=== PATIENT | female | born 1945 | race African-American/Black ===

== ENCOUNTER 2019-09-13 13:39 | Emergency (ER) | payer MEDICARE ==
[~2019-09-13] VITALS: Ht 162.6 cm; Wt 84.0 kg
[2019-09-13] MEDS ORDERED: KETOROLAC 60MG/2ML VIAL IM ONE (14:45)
[2019-09-13 15:56] VITALS: BP 136/98
== END 2019-09-13 15:56 | disposition home or self-care (01) ==
LOC: ER 14:02
DX: M25.512 Pain in left shoulder (principal); Z98.890 Other specified postprocedural states
CPT/HCPCS: 73030; 96372; 99283; J1885

== ENCOUNTER 2019-10-13 19:11 | Emergency (ER) | payer MEDICARE ==
[~2019-10-13] VITALS: Ht 162.6 cm; Wt 84.0 kg
[2019-10-13] MEDS ORDERED: KETOROLAC 30MG/ML VIAL IM ONE (23:00)
[2019-10-14] MEDS ORDERED: ONDANSETRON HCL 4MG/2ML INJ IV PRN
[2019-10-14] MEDS ORDERED: IPRATROPIUM/ALBUTEROL 0.5-3(2.5)MG/3ML NEB HHN PRN
[2019-10-14] MEDS ORDERED: DIPHENHYDRAMINE 50MG/ML VIAL IV PRN
[2019-10-14] MEDS ORDERED: ACETAMINOPHEN 325MG TABLET PO PRN
[2019-10-14] MEDS ORDERED: MAGNESIUM/ALUMINUM HYDROXIDE/SIMETHICONE 30ML UDC PO PRN
[2019-10-14] MEDS ORDERED: GUAIFENESIN 200MG/10ML SUGAR FREE UDC PO PRN
[2019-10-14] MEDS ORDERED: TRAMADOL 50MG TABLET PO PRN
[2019-10-14] MEDS ORDERED: HYDROCODONE/ACETAMINOPHEN 5/325MG TABLET PO PRN
[2019-10-14] MEDS ORDERED: CYCLOBENZAPRINE 10MG TABLET PO PRN
[2019-10-14] MEDS ORDERED: MORPHINE SULFATE 2 MG/ML CPJ (NOT FOR IM USE) IV PRN
[2019-10-14] MEDS ORDERED: CLONIDINE 0.1MG TABLET PO PRN
[2019-10-14] MEDS ORDERED: DOCUSATE SODIUM 100MG CAPSULE PO PRN
[2019-10-14] MEDS ORDERED: LORAZEPAM 2MG/ML CPJ IV PRN
[2019-10-14 00:44] VITALS: BP 176/85
[2019-10-14] MEDS ORDERED: FAMOTIDINE 20MG TABLET PO SCH (21:00)
== END 2019-10-14 00:46 | disposition home or self-care (01) ==
LOC: ER 19:11
DX: M25.512 Pain in left shoulder (principal); I10 Essential (primary) hypertension; J45.909 Unspecified asthma, uncomplicated
CPT/HCPCS: 73030; 73060; 96372; 99284; J1885

== ENCOUNTER 2022-01-07 09:33 | Emergency (ER) | payer MEDICARE, OTHER ==
[~2022-01-07] VITALS: Ht 160 cm; Wt 73.0 kg
[2022-01-07 09:48] VITALS: BP 162/77
[2022-01-07] MEDS ORDERED: MECLIZINE 25MG TABLET PO ONE (11:45)
[2022-01-07 11:57] LABS: HEMATOCRIT. 43.7 % (36.0-48.0); HEMOGLOBIN. 14.8 g/dL (12.0-16.0); MEAN CORPUSCULAR HEMOGLOBIN 29.1 pg (28.0-32.0); MEAN CORPUSCULAR VOLUME 85.5 fL (81.0-99.0); MEAN PLATELET VOLUME 8.5 fl (7.4-10.4); PLATELET 220 x1000/uL (130-400); RED CELL DISTRIBUTION WIDTH 14.4 % (11.6-14.6)
[2022-01-07 12:02] LABS: CHLORIDE 108 mEq/L (98-107)
[2022-01-07 12:08] LABS: CLARITY URINE CLEAR (CLEAR); COLOR URINE YELLOW (YELLOW); KETONES URINE TRACE (NEGATIVE); LEUKOCYTE ESTERASE URINE NEGATIVE (NEGATIVE); NITRITE URINE NEGATIVE (NEGATIVE); OCCULT BLOOD URINE NEGATIVE (NEGATIVE); PROTEIN URINE NEGATIVE (NEGATIVE); UROBILINOGEN URINE 0.2 E.U./dL (0.2-1.0)
[2022-01-07 12:35] LABS: PLATELET ESTIMATE NORMAL
[2022-01-07] MEDS ORDERED: MECL-217 MT (14:20)
== END 2022-01-07 14:25 | disposition left against medical advice (07) ==
LOC: ER 09:33 → CANBEDREQ 17:09
DX: R42 Dizziness and giddiness (principal); D72.829 Elevated white blood cell count, unspecified; J45.909 Unspecified asthma, uncomplicated; Z98.890 Other specified postprocedural states
CPT/HCPCS: 36415; 70450; 71045; 80053; 81003; 83880; 84484; 85025; 93005; 99285; J8597

== ENCOUNTER 2022-03-02 13:04 | Emergency (ER) | payer OTHER ==
[~2022-03-02] VITALS: Ht 167.6 cm; Wt 77.0 kg
[~2022-03-02 13:04] MED LIST: MECL-217 MT
[2022-03-02] MEDS ORDERED: ONDANSETRON HCL 4MG/2ML INJ IV STA (14:24)
[2022-03-02] MEDS ORDERED: KETOROLAC 30MG/ML VIAL IV STA (14:24)
[2022-03-02] MEDS ORDERED: AMLODIPINE 10MG TABLET PO ONE (14:30)
[2022-03-02] MEDS ORDERED: MECLIZINE 25MG TABLET PO ONE (14:30)
[2022-03-02] MEDS ORDERED: SODIUM CHLORIDE 0.9% 1,000 ML IV ONE (14:30)
[2022-03-02 14:50] LABS: BASOPHILS % 0.5 % (0.0-2.0); EOSINOPHILS % 0.9 % (0.0-5.0); HEMATOCRIT. 41.1 % (36.0-48.0); HEMOGLOBIN. 14.2 g/dL (12.0-16.0); LYMPHOCYTES % 9.9 % (20.0-50.0); MEAN CORPUSCULAR HEMOGLOBIN 29.2 pg (28.0-32.0); MEAN CORPUSCULAR VOLUME 84.8 fL (81.0-99.0); MEAN PLATELET VOLUME 8.3 fl (7.4-10.4); MONOCYTES % 5.4 % (2.0-8.0); NEUTROPHILS % 83.3 % (40.0-76.0); PLATELET 220 x1000/uL (130-400); RED BLOOD CELL COUNT 4.85 mill/uL (4.2-5.4); RED CELL DISTRIBUTION WIDTH 13.8 % (11.6-14.6)
[2022-03-02 14:57] LABS: CHLORIDE 107 mEq/L (98-107)
[2022-03-02 15:02] LABS: PARTIAL THROMBOPLASTIN TIME 26.3 sec (23.4-31.0); PROTHROMBIN TIME 10.9 sec (9.6-11.0)
[2022-03-02 15:23] VITALS: BP 197/73
[2022-03-02] MEDS ORDERED: MECL-159 MT (16:50)
[2022-03-02] MEDS ORDERED: AMLO10TA4 MT (16:50)
== END 2022-03-02 18:00 | disposition home or self-care (01) ==
LOC: ER 13:47
DX: R42 Dizziness and giddiness (principal); I10 Essential (primary) hypertension; R51.9 Headache, unspecified; J45.909 Unspecified asthma, uncomplicated
CPT/HCPCS: 36415; 70450; 71045; 80053; 83880; 84484; 85025; 85610; 85730; 86850; 86900; 86901; 93005; 96361; 96374; 96375; 99285; J1885; J2405; J7030; J8597

== ENCOUNTER 2023-07-14 09:55 | Emergency (ER) | payer OTHER ==
[~2023-07-14] VITALS: Ht 172.7 cm; Wt 91.0 kg
[~2023-07-14 09:55] MED LIST changes: +AMLO10TA4 MT; +MECL-299 MT
[2023-07-14 10:01] VITALS: O2SAT 99
[2023-07-14 10:40] LABS: BASOPHILS % 0.4 % (0.0-2.0); EOSINOPHILS % 2.2 % (0.0-5.0); HEMATOCRIT. 41.4 % (36.0-48.0); HEMOGLOBIN. 13.7 g/dL (12.0-16.0); LYMPHOCYTES % 10.5 % (20.0-50.0); MEAN CORPUSCULAR HEMOGLOBIN 28.4 pg (28.0-32.0); MEAN CORPUSCULAR HGB CONC 33.2 g/dL (31.0-37.0); MEAN CORPUSCULAR VOLUME 85.5 fL (81.0-99.0); MEAN PLATELET VOLUME 8.8 fl (7.4-10.4); MONOCYTES % 6.8 % (2.0-8.0); NEUTROPHILS % 80.1 % (40.0-76.0); PLATELET 193 x1000/uL (130-400); RED BLOOD CELL COUNT 4.84 mill/uL (4.2-5.4); WHITE BLOOD COUNT 9.7 x1000/uL (4.5-11.0)
[2023-07-14 11:03] LABS: ALANINE AMINOTRANSFERASE 12 IU/L (10-49); ALBUMIN 4.1 g/dL (3.2-4.8); ASPARTATE AMINOTRANSFERASE 19 IU/L (<34); BILIRUBIN TOTAL 0.4 mg/dL (0.1-1.0); CALCIUM 8.7 mg/dL (8.7-10.4); CARBON DIOXIDE 28 mEq/L (21-32); CHLORIDE 109 mEq/L (98-107); CREATININE 0.8 mg/dL (0.6-1.0); GLUCOSE 113 mg/dL (70-105); POTASSIUM 4.3 mEq/L (3.5-5.1); PROTEIN TOTAL 6.9 g/dL (6.0-8.3); SODIUM 139 mEq/L (136-145); UREA NITROGEN BLOOD 10 mg/dL (9-23)
[2023-07-14] MEDS: ACETAMINOPHEN 325MG TABLET PO PRN (12:10)
[2023-07-14 15:22] LABS: CLARITY URINE CLOUDY (CLEAR); COLOR URINE RED (YELLOW); GLUCOSE URINE NEGATIVE (NEGATIVE); KETONES URINE NEGATIVE (NEGATIVE); LEUKOCYTE ESTERASE URINE 1+ (NEGATIVE); NITRITE URINE NEGATIVE (NEGATIVE); OCCULT BLOOD URINE 3+ (NEGATIVE); PROTEIN URINE 2+ (NEGATIVE); SPECIFIC GRAVITY URINE 1.007 (1.005-1.030); UROBILINOGEN URINE 0.2 E.U./dL (0.2-1.0)
[2023-07-14 15:46] LABS: BACTERIA URINE 1+; RBC URINE TNTC /hpf (0-2); SQUAMOUS EPITHELIAL CELL URINE FEW /lpf (RARE/1+)
[2023-07-14] MEDS ORDERED: CEFP100T8 MT (16:54)
[2023-07-14 17:05] VITALS: BP 160/84; PULSE 79; RESP 15; TEMP 97.1
== END 2023-07-14 17:34 | disposition home or self-care (01) ==
LOC: ER 09:55
DX: D25.9 Leiomyoma of uterus, unspecified (principal); J45.909 Unspecified asthma, uncomplicated; I10 Essential (primary) hypertension; N39.0 Urinary tract infection, site not specified
CPT/HCPCS: 36415; 76830; 76856; 80053; 81003; 85025; 86850; 86900; 99284